=== PATIENT | female | born 1945 | race Caucasian/White ===

== ENCOUNTER 2016-11-29 09:22 | Outpatient (CLI) | payer MEDICARE | END 2016-11-29 09:23 | disposition home or self-care (01) | LOC: LABHHL 09:22 | PROVIDERS: ATTEND Internal Medicine | DX: I10 Essential (primary) hypertension (principal); E78.00 Pure hypercholesterolemia, unspecified; K21.9 Gastro-esophageal reflux disease without esophagitis; K64.9 Unspecified hemorrhoids; M81.0 Age-related osteoporosis without current pathological fracture; F32.9 Major depressive disorder, single episode, unspecified; Z79.899 Other long term (current) drug therapy | CPT/HCPCS: 36415; 80061; 83036 ==

== ENCOUNTER 2019-01-09 09:10 | Outpatient (CLI) | payer MEDICARE, BC ==
[2019-01-09 10:37] LABS: Chol/HDL Ratio 2.96 %
[2019-01-09 10:49] LABS: Free T4 (Free Thyroxine) 1.22 ng/dL (0.76-1.46)
[2019-01-12 13:05] LABS: Vitamin D, 25-OH, D2 <4 ng/mL
== END 2019-01-09 09:11 | disposition home or self-care (01) ==
LOC: LAB 09:10
PROVIDERS: ATTEND Internal Medicine
DX: E78.5 Hyperlipidemia, unspecified (principal); E55.9 Vitamin D deficiency, unspecified; R94.6 Abnormal results of thyroid function studies; Z90.710 Acquired absence of both cervix and uterus
CPT/HCPCS: 36415; 80061; 82306; 84439; 84443

== ENCOUNTER 2021-01-04 12:35 | Outpatient (CLI) | payer MEDICARE, BC ==
[2021-01-04 13:31] LABS: Basophils # (Auto) 0.2 K/mm3 (0.0-0.1); Basophils % (Auto) 2.3 % (0.0-1.8); Eosinophils # (Auto) 0.4 K/mm3 (0.0-0.4); Eosinophils % (Auto) 4.9 % (0.0-4.3); Hematocrit 41.9 % (30.3-42.9); Hemoglobin 14.2 gm/dl (10.1-14.3); Lymphocytes # (Auto) 1.6 K/mm3 (1.2-5.4); Lymphocytes % (Auto) 21.5 % (13.4-35.0); Mean Corpuscular HGB Conc 34 % (30-34); Mean Corpuscular Volume 88 fl (79-97); Monocytes # (Auto) 0.6 K/mm3 (0.0-0.8); Monocytes % (Auto) 8.2 % (0.0-7.3); Platelet Count 299 K/mm3 (140-440); Red Blood Count 4.79 M/mm3 (3.65-5.03); Red Cell Distribution Width 14.1 % (13.2-15.2)
== END 2021-01-04 12:36 | disposition home or self-care (01) ==
LOC: LAB 12:35
PROVIDERS: ATTEND Internal Medicine
DX: R73.9 Hyperglycemia, unspecified (principal); R94.6 Abnormal results of thyroid function studies; E78.5 Hyperlipidemia, unspecified
CPT/HCPCS: 36415; 84443; 85025

== ENCOUNTER 2021-05-25 11:31 | Outpatient (CLI) | payer MEDICARE, BC ==
[2021-05-25 12:27] LABS: Basophils % (Auto) 0.5 % (0.0-1.8); Eosinophils # (Auto) 0.2 K/mm3 (0.0-0.4); Eosinophils % (Auto) 3.6 % (0.0-4.3); Hematocrit 43.7 % (30.3-42.9); Hemoglobin 14.2 gm/dl (10.1-14.3); Lymphocytes # (Auto) 2.1 K/mm3 (1.2-5.4); Lymphocytes % (Auto) 30.5 % (13.4-35.0); Mean Corpuscular HGB Conc 33 % (30-34); Mean Corpuscular Volume 87 fl (79-97); Monocytes # (Auto) 0.5 K/mm3 (0.0-0.8); Monocytes % (Auto) 7.1 % (0.0-7.3); Platelet Count 297 K/mm3 (140-440); Red Blood Count 5.05 M/mm3 (3.65-5.03); Red Cell Distribution Width 13.5 % (13.2-15.2)
[2021-05-25 12:31] LABS: Bacteria,Urine 1+ /HPF (Negative); Bilirubin,Urine NEG (Negative); Blood,Urine NEG (Negative); Color,Urine Yellow (Yellow); Mucus,Urine 1+ /HPF; Protein,Urine <15 mg/dL mg/dL (Negative); Urobilinogen,Urine < 2.0 mg/dL (<2.0)
[2021-05-25 12:54] LABS: Alanine Aminotransferase 20 units/L (7-56); Albumin 4.7 g/dL (3.9-5); Blood Urea Nitrogen 14 mg/dL (7-17); Calcium 9.9 mg/dL (8.4-10.2); Chol/HDL Ratio 2.96 %; HDL Cholesterol 62 mg/dL (40-59); Hemolysis Index 5; LDL Cholesterol,Direct 121 mg/dL (50-130)
[2021-05-25 12:55] LABS: BUN/Creatinine Ratio 28
== END 2021-05-25 11:32 | disposition home or self-care (01) ==
LOC: LAB 11:31
PROVIDERS: ATTEND Internal Medicine
DX: I10 Essential (primary) hypertension (principal); R78.5 Finding of other psychotropic drug in blood; E55.9 Vitamin D deficiency, unspecified; E78.5 Hyperlipidemia, unspecified; R94.6 Abnormal results of thyroid function studies; R73.9 Hyperglycemia, unspecified; Z00.00 Encounter for general adult medical examination without abnormal findings
CPT/HCPCS: 36415; 80053; 80061; 81001; 82306; 83036; 84443; 85025

== ENCOUNTER 2021-10-06 09:32 | Outpatient (CLI) | payer MEDICARE, BC ==
[2021-10-06 10:59] LABS: Chol/HDL Ratio 3.37 %
== END 2021-10-06 09:33 | disposition home or self-care (01) ==
LOC: LAB 09:32
PROVIDERS: ATTEND Internal Medicine
DX: E78.5 Hyperlipidemia, unspecified (principal)
CPT/HCPCS: 36415; 80061